=== PATIENT | male | born 1985 | race American Indian/Alaskan Native ===

== ENCOUNTER 2017-06-29 15:49 | Inpatient (IN) | payer MEDICAID ==
[2017-06-29] MEDS ORDERED: Sodium Chloride 0.9% 10 ML Syringe FLUSH PRN (15:56)
[2017-06-29] MEDS ORDERED: LORazepam 2 MG/ML SDV IVPUSH ONE (15:56)
[2017-06-29] MEDS: Sodium Chloride 0.9% 1,000 ML IV SCH ×2 (16:05→18:56)
--- NOTE | 2017-06-29 16:24 | EDM.PDOC ---
ED HPI GENERAL MEDICAL PROBLEM - General Chief Complaint: Drug or Alcohol Abuse Stated Complaint: drug overdose Time Seen by Provider: 06/29/17 15:55 Source of Information: Reports: Patient History Limitations: Reports: Altered Mental Status, Combative/Threatening - History of Present Illness INITIAL COMMENTS - FREE TEXT/NARRATIVE: Patient's trying the emergency department this afternoon by family members. Patient states that he had taken ibuprofen 200 mg tablets 50 years them early this morning or late last night to try and get high. This morning he also was smoking marijuana and accommodation at 2 made the patient feel very lightheaded dizzy agitated and very warm. Patient states he is nauseated and has vomited once. Patient is very agitated and unable to answer many questions. Onset: Sudden Associated Symptoms: Reports: Fever/Chills, Nausea/Vomiting. Denies: cough w sputum, Headaches, Loss of Appetite, Malaise, Seizure, Shortness of Breath, Syncope - Related Data Allergies Allergy/AdvReac Type Severity Reaction Status Date / Time No Known Allergies Allergy Verified 06/29/17 16:28 Home Meds: Home Meds buPROPion [Wellbutrin] 200 mg BID 06/29/17 [History] Past Medical History Psychiatric History: Reports: ADD, ADHD, Anxiety, Depression - Past Surgical History GI Surgical History: Reports: Cholecystectomy ED ROS GENERAL - Review of Systems Review Of Systems: See Below Constitutional: Reports: No Symptoms HEENT: Reports: No Symptoms Respiratory: Reports: No Symptoms Cardiovascular: Reports: No Symptoms Endocrine: Reports: No Symptoms GI/Abdominal: Reports: No Symptoms Skin: Reports: Diaphoresis Neurological: Reports: Confusion, Dizziness Psychiatric: Reports: Agitation ED EXAM, GENERAL - Physical Exam Exam: See Below Exam Limited By: Combative/Threatening General Appearance: Alert Respiratory/Chest: No Respiratory Distress, No Accessory Muscle Use Cardiovascular: Normal Peripheral Pulses, Regular Rate, Rhythm GI/Abdominal: Normal Bowel Sounds, Soft, Non-Tender, No Distention, No Abnormal Bruit Extremities: Normal Inspection, Normal Range of Motion, Normal Capillary Refill Neurological: Disoriented Psychiatric: Anxious, Tearful Skin Exam: Warm, Dry, Intact, Normal Color Course - Vital Signs Last Recorded V/S: Last Vital Signs Temp 37.2 C 06/29/17 15:49 Pulse 106 H 06/29/17 15:49 Resp 20 06/29/17 15:49 BP 139/107 H 06/29/17 15:49 Pulse Ox 97 06/29/17 15:49 - Orders/Labs/Meds Orders: Active Orders 24 hr Category Date Time Status Cardiac Monitoring [RC] . DIRECTED Care 06/29/17 16:32 Ordered Chest 1V Frontal [CR] Stat Exams 06/29/17 16:34 Ordered ACETAMINOPHEN [CHEM] Stat Lab 06/29/17 15:56 Ordered COMPREHENSIVE METABOLIC PN,CMP [CHEM] Stat Lab 06/29/17 15:56 Ordered DRUG SCREEN, URINE [URCHEM] Stat Lab 06/29/17 16:30 Uncollected SALICYLATE [REF] Stat Lab 06/29/17 15:56 Ordered Sodium Chloride 0.9% [Normal Saline] 1,000 ml Med 06/29/17 16:00 Active IV ASDIRECTED Sodium Chloride 0.9% [Saline Flush] Med 06/29/17 15:56 Active 10 ml FLUSH ASDIRECTED PRN Peripheral IV Insertion Adult [OM.PC] Routine Oth 06/29/17 15:56 Ordered Medication Orders Sodium Chloride (Normal Saline) 1,000 mls @ 100 mls/hr IV ASDIRECTED MARVA Last Admin: 06/29/17 16:05 Dose: 100 mls/hr Sodium Chloride (Saline Flush) 10 ml FLUSH ASDIRECTED PRN PRN Reason: Keep Vein Open Labs: Laboratory Tests 06/29/17 Range/Units 16:38 WBC 6.8 (4.0-10.0) x10^3/uL RBC 4.70 (4.5-6.0) x10^6/uL Hgb 13.6 L (14.0-18.0) g/dL Hct 41.3 (40.0-52.0) % MCV 87.9 (78.0-93.0) fL MCH 28.9 (26.0-32.0) pg MCHC 32.9 (32.0-36.0) g/dL RDW Coeff of Rolando 14.3 (10.0-15.0) % Plt Count 213 (130-400) x10^3/uL Neut % (Auto) 67.4 (50.0-80.0) % Lymph % (Auto) 18.7 L (25.0-50.0) % Upson % (Auto) 9.6 (2.0-11.0) % Eos % (Auto) 4.0 (0.0-4.0) % Baso % (Auto) 0.3 (0.2-1.2) % Meds: Medications Generic Name Dose Route Start Last Admin Trade Name Freq PRN Reason Stop Dose Admin Sodium Chloride 1,000 mls @ 100 mls/hr 06/29/17 16:00 06/29/17 16:05 Normal Saline IV 100 mls/hr ASDIRECTED MARVA Administration Sodium Chloride 10 ml 06/29/17 15:56 Saline Flush FLUSH ASDIRECTED PRN Keep Vein Open Discontinued Medications Generic Name Dose Route Start Last Admin Trade Name Freq PRN Reason Stop Dose Admin Lorazepam 2 mg 06/29/17 15:56 06/29/17 16:06 Ativan IVPUSH 06/29/17 15:57 2 mg ONETIME ONE Administration Departure - Departure Time of Disposition: 17:30 Disposition: Admitted As Inpatient 64 Condition: Good Clinical Impression: Drug abuse - Discharge Information Forms: ED Department Discharge - My Orders Last 24 Hours: My Active Orders 06/29/17 15:56 ACETAMINOPHEN [CHEM] Stat COMPREHENSIVE METABOLIC PN,CMP [CHEM] Stat SALICYLATE [REF] Stat Sodium Chloride 0.9% [Saline Flush] 10 ml FLUSH ASDIRECTED PRN Peripheral IV Insertion Adult [OM.PC] Routine 06/29/17 16:00 Sodium Chloride 0.9% [Normal Saline] 1,000 ml IV ASDIRECTED 06/29/17 16:30 DRUG SCREEN, URINE [URCHEM] Stat 06/29/17 16:32 Cardiac Monitoring [RC] . DIRECTED 06/29/17 16:34 Chest 1V Frontal [CR] Stat - Assessment/Plan Last 24 Hours: My Active Orders 06/29/17 15:56 ACETAMINOPHEN [CHEM] Stat COMPREHENSIVE METABOLIC PN,CMP [CHEM] Stat SALICYLATE [REF] Stat Sodium Chloride 0.9% [Saline Flush] 10 ml FLUSH ASDIRECTED PRN Peripheral IV Insertion Adult [OM.PC] Routine 06/29/17 16:00 Sodium Chloride 0.9% [Normal Saline] 1,000 ml IV ASDIRECTED 06/29/17 16:30 DRUG SCREEN, URINE [URCHEM] Stat 06/29/17 16:32 Cardiac Monitoring [RC] . DIRECTED 06/29/17 16:34 Chest 1V Frontal [CR] Stat
[2017-06-29 17:08] LABS: CHLORIDE,CL 104 mmol/L (98-107); SODIUM,NA 139 mmol/L (136-145)
[2017-06-29 17:09] LABS: ACETAMINOPHEN 0 ug/ml (10-30)
[2017-06-29] MEDS ORDERED: Diphtheria,Pertussis(Acell),Tetanus Vaccine 0.5 ML Syringe IM ONE (17:59)
--- NOTE | 2017-06-30 10:06 | HP ---
This is a combination of admission history and physical, discharge summary, and transfer summary. REASON FOR ADMISSION: Drug overdose. HISTORY OF PRESENT ILLNESS: This is a 31-year-old male, brought in by family members because of not feeling well. He tells me he started taking increasing doses of Wellbutrin about 36 hours ago. Over that time, he took 200 mg tablets, approximately 50 tablets. Not sure exactly when he stopped taking those sometime today. Then, he started taking some marijuana today. With the combination of his Wellbutrin and marijuana, he started having sweats, shakes, dizziness, nausea, and spinning sensation. He felt scared. He had increased heart rate, but no headache, and he was brought into the emergency room for assessment. In the emergency room, he was found to be agitated. He was given one dose of 2 mg of IV Ativan with improvement. PAST MEDICAL HISTORY: Significant for depression. He was started on Wellbutrin SR 200 mg b.i.d. about 2 to 3 months ago by [facility] in [place] to manage this. He states he was having a crisis problem over the past couple of days and was taking increasing doses of Wellbutrin to not feel the pain and to control his anger and to "get high." He was subsequently with marijuana. He denies this being a suicide attempt. He has several year history of depression, but in the past 2 months this is the first time it has been treated. 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 He is on gabapentin 600 mg t.i.d. for this with improvement. Again, he supplements this with marijuana. ALLERGIES: Dogs and cats. Tylenol with codeine upsets his stomach. HABITS: Tobacco use is positive. Alcohol use is occasional. He denies other drug use other than marijuana. REVIEW OF SYSTEMS: Otherwise unremarkable. OBJECTIVE: General: He is alert. Current Vital Signs: He is afebrile, pulse of 86, blood pressure 100/47, respirations 16, and oxygen saturations 97% on room air. The patient is morbidly obese, probably greater than 400 pounds. HEENT: Pupils unremarkable. TMs negative. Throat clear. Neck: No adenopathy. Heart: Regular without murmur. Lungs: Clear to auscultation. Abdomen: Nontender. No masses palpable. No hepatosplenomegaly noted. Extremities: Moves all 4 extremities. No edema. NEUROLOGIC: Grossly intact. Currently not agitated. LABORATORY DATA: White count 6.8 and hemoglobin 13.6. His electrolytes are normal. Creatinine 1.1. Glucose of 93. LFTs are normal. Urine tox screen was negative except for marijuana. Acetaminophen level is pending. Initial chest x- ray was unremarkable. Initial EKG showed normal sinus rhythm, rate in the 80s, QRS of 113, this was done about 1400 hours. Repeat EKG about 8 p.m. showed a widening of his QRS to 124 with a heart rate of 84. Otherwise within normal sinus rhythm. Contact was made with Poison Control initially in the ER and then again later on the floor. They spoke with Domingo. Recommendation was for that if his QRS goes over 120, he needs some bicarb along with a bicarb infusion and to monitor his QRS closely and check for acidosis. Because of this recommendation, it was felt that he would not require ICU monitoring. I then contacted [facility], talked to the hospitalist on duty, Dr. Gonzales, and he agreed that he would need to be monitored in the ICU for potential deterioration of his condition. He accepted the patient in transfer. ASSESSMENT: Drug overdose. PLAN: The patient will be transferred by ALS ambulance to [facility]. Dr. Gonzales is accepting physician, may be placed in the ICU. Emtala forms paperwork completed. Duration of discharge day and evaluation was greater than 1 hour. FM: 06/29/2017 21:05:58 MODL: 06/30/2017 02:05:25 /[id number]
== END 2017-06-29 21:28 | disposition short-term general hospital (02) | DRG 918 ==
LOC: VM.ED 15:49 → VM.MS 17:04
PROVIDERS: ADMIT Family Medicine; ATTEND Family Medicine
DX: T43.291A Poisoning by other antidepressants, accidental (unintentional), initial encounter (principal); T40.7X1A Poisoning by cannabis (derivatives), accidental (unintentional), initial encounter; F32.9 Major depressive disorder, single episode, unspecified; G89.4 Chronic pain syndrome; R45.1 Restlessness and agitation; Z88.8 Allergy status to other drugs, medicaments and biological substances; Z91.048 Other nonmedicinal substance allergy status; F17.200 Nicotine dependence, unspecified, uncomplicated; Z79.899 Other long term (current) drug therapy; F41.9 Anxiety disorder, unspecified
CPT/HCPCS: 36415; 71045; 80053; 80305; 80349; 85025; 93005; 96361; 96374; 99236; 99284-GF; 99285; G0480; J2060; J7030

== ENCOUNTER 2017-11-16 18:42 | Emergency (ER) | payer MEDICAID ==
--- NOTE | 2017-11-16 18:58 | EDM.PDOC ---
ED HPI GENERAL MEDICAL PROBLEM - General Chief Complaint: General Stated Complaint: tooth pain Time Seen by Provider: 11/16/17 18:42 Source of Information: Reports: Patient, RN, RN Notes Reviewed History Limitations: Reports: No Limitations - History of Present Illness INITIAL COMMENTS - FREE TEXT/NARRATIVE: Patient presents to the ED at [facility] complaining of left upper tooth pain that started about one week ago. Patient states he has spoke with a dentist , but he is unable to pay for a dental visit at this time. Patient is requesting pain medication. Patient states the pain radiates to the upper left jaw and head. No fever or chills. Patient is able to eat ok. No issues with drinking. Patient does not have a regular dentist nor does he go to regular dental checkups. Onset: Gradual Onset Date: 11/09/17 Duration: Constant Location: Reports: Face Quality: Reports: Throbbing Severity: Severe Improves with: Reports: None Worsens with: Reports: Eating, Movement Associated Symptoms: Reports: No Other Symptoms Treatments LEAD ENGINEER: Reports: Acetaminophen, NSAIDS - Related Data Allergies Allergy/AdvReac Type Severity Reaction Status Date / Time dog dander Allergy Other Verified 06/29/17 20:41 acetaminophen AdvReac Nausea and Verified 06/30/17 09:23 [From Tylenol-Codeine #3] Vomiting codeine AdvReac Nausea and Verified 06/30/17 09:23 [From Tylenol-Codeine #3] Vomiting Home Meds: Home Meds Acetaminophen 2 tab PO Q6HR PRN #10 tablet 11/16/17 [Rx] Clindamycin HCl 1 cap PO Q8HR 9 Days #27 capsule 11/16/17 [Rx] Ibuprofen 4 tab PO Q6HR PRN #12 capsule 11/16/17 [Rx] Past Medical History - Past Health History Medical/Surgical History: Denies Medical/Surgical History Psychiatric History: Reports: ADD, ADHD, Anxiety, Depression - Infectious Disease History Infectious Disease History: Reports: Chicken Pox - Past Surgical History GI Surgical History: Reports: Cholecystectomy Social & Family History - Family History Family Medical History: Noncontributory - Caffeine Use Caffeine Use: Reports: Energy Drinks, Soda ED ROS GENERAL - Review of Systems Review Of Systems: See Below Constitutional: Denies: Fever, Chills, Weakness HEENT: Reports: Dental Pain Respiratory: Denies: Shortness of Breath, Cough Cardiovascular: Denies: Chest Pain, Palpitations Skin: Reports: No Symptoms Neurological: Reports: No Symptoms. Denies: Dizziness, Headache ED EXAM, GENERAL - Physical Exam Exam: See Below Exam Limited By: No Limitations General Appearance: Alert, No Apparent Distress Throat/Mouth: Other (considerable gingivitis and periodontal disease throughout ; molars #12, #13) Neck: Supple, Other (no adenopathy) Respiratory/Chest: No Respiratory Distress, Lungs Clear, Normal Breath Sounds Cardiovascular: Normal Peripheral Pulses, Regular Rate, Rhythm Neurological: Alert, Oriented Skin Exam: Warm, Dry, Intact, Normal Color Departure - Departure Time of Disposition: 18:58 Disposition: Home, Self-Care 01 Condition: Good Clinical Impression: Dental abscess, Dental caries, Gingivitis - Discharge Information Prescriptions: Acetaminophen 2 tab PO Q6HR PRN #10 tablet PRN Reason: Pain Ibuprofen 4 tab PO Q6HR PRN #12 capsule PRN Reason: Pain Clindamycin HCl 1 cap PO Q8HR 9 Days #27 capsule Instructions: Dental Abscess, Gingivitis Additional Instructions: 1. Stay well hydrated and rest 2. Do warm salt water gargles several times a day 3. Continue with alternating Tylenol/Advil for pain 4. Rinse with an antiseptic mouth wash 5. STOP smoking, this is making your symptoms worse 6. Take antibiotics for the full coarse, even if you are feeling better 7. See your dentist as soon as you are able, your teeth need to get fixed 8. Call us with any questions or concerns - Problem List Review Problem List Initiated/Reviewed/Updated: Yes
[2017-11-16] MEDS ORDERED: Take Home: Clindamycin HCl 150 MG Cap, 6 Cap Pack PO ONE (19:04)
== END 2017-11-16 19:15 | disposition home or self-care (01) ==
LOC: VM.ED 18:42
DX: K04.7 Periapical abscess without sinus (principal); K02.9 Dental caries, unspecified; K05.10 Chronic gingivitis, plaque induced; Z88.5 Allergy status to narcotic agent; Z79.899 Other long term (current) drug therapy; Z88.8 Allergy status to other drugs, medicaments and biological substances; Z91.048 Other nonmedicinal substance allergy status
CPT/HCPCS: 99282

== ENCOUNTER 2018-02-06 14:56 | Emergency (ER) | payer MEDICAID ==
[2018-02-06] MEDS ORDERED: Lidocaine 2% with EPINEPHrine 1:100,000 20 ML MDV INJECT ONE (15:21)
[2018-02-06] MEDS ORDERED: Cephalexin 500 MG Cap PO ONE (15:40)
[2018-02-06] MEDS ORDERED: Cephalexin 250 MG Cap PO ONE (15:41)
--- NOTE | 2018-02-06 15:49 | EDM.PDOC ---
ED HPI GENERAL MEDICAL PROBLEM - General Chief Complaint: Skin Complaint Stated Complaint: CYST Time Seen by Provider: 02/06/18 15:00 Source of Information: Reports: Patient History Limitations: Reports: No Limitations - History of Present Illness INITIAL COMMENTS - FREE TEXT/NARRATIVE: Patient here with complaints of left upper leg sore that started two days ago. He states that the pain is worsening gradually. He does state he has a history of this. He denies fever, chills. No other complaints today. Onset: Gradual Duration: Getting Worse Location: Reports: Lower Extremity, Left Quality: Reports: Ache Severity: Moderate Improves with: Reports: None Worsens with: Reports: Other (rubbing of thighs ), Movement Associated Symptoms: Reports: No Other Symptoms - Related Data Allergies Allergy/AdvReac Type Severity Reaction Status Date / Time dog dander Allergy Other Verified 02/06/18 15:13 acetaminophen AdvReac Nausea and Verified 02/06/18 15:13 [From Tylenol-Codeine #3] Vomiting codeine AdvReac Nausea and Verified 02/06/18 15:13 [From Tylenol-Codeine #3] Vomiting Home Meds: Home Meds . [No Known Home Meds] 02/06/18 [History] Past Medical History - Past Health History Medical/Surgical History: Denies Medical/Surgical History Respiratory History: Reports: Sleep Apnea Psychiatric History: Reports: ADD, ADHD, Anxiety, Depression Dermatologic History: Reports: Other (See Below) Other Dermatologic History: cyst - Infectious Disease History Infectious Disease History: Reports: Chicken Pox - Past Surgical History Other HEENT Surgeries/Procedures: tooth removal GI Surgical History: Reports: Cholecystectomy Social & Family History - Family History Family Medical History: Noncontributory - Tobacco Use Smoking Status *Q: Current Every Day Smoker Years of Tobacco use: 18 Packs/Tins Daily: 0.2 - Caffeine Use Caffeine Use: Reports: Energy Drinks, Soda ED ROS GENERAL - Review of Systems Review Of Systems: See Below Constitutional: Reports: No Symptoms HEENT: Reports: No Symptoms Respiratory: Reports: No Symptoms Cardiovascular: Reports: No Symptoms Endocrine: Reports: No Symptoms GI/Abdominal: Reports: No Symptoms : Reports: No Symptoms Musculoskeletal: Reports: No Symptoms Skin: Reports: Erythema, Lumps Neurological: Reports: No Symptoms Psychiatric: Reports: No Symptoms Hematologic/Lymphatic: Reports: No Symptoms Immunologic: Reports: No Symptoms ED EXAM, SKIN/RASH Exam: See Below Exam Limited By: No Limitations General Appearance: Alert, WD/WN, No Apparent Distress Peripheral Pulses: 2+: Posterior Tibial (L), Posterior Tibial (R), Dorsalis Pedis (L), Dorsalis Pedis (R) Extremities: Normal Inspection, Normal Range of Motion, Non-Tender, No Pedal Edema, Normal Capillary Refill Neurological: Alert, Oriented, CN II-XII Intact, Normal Cognition, Normal Gait, Normal Reflexes, No Motor/Sensory Deficits Psychiatric: Normal Affect, Normal Mood Skin: Warm, Dry, Intact, Erythema, Increased Warmth Location, Skin: Lower Extremity, Left Characteristics: Other (abscess left upper thigh) Lymphatic: No Adenopathy ED SKIN PROCEDURES - I&D Site: left upper leg Skin Prep: Chlorhexidine (Hibiciens) Local Anesthesia: Lidocaine: 2% with EPI Local Anesthetic Volume: 1cc Area Incised With: 11 Blade Drainage: Bloody, Small Amount Probed to Break Up Loculations: Yes Sterile Dressinx4(s) Complications: No Course - Vital Signs Last Recorded V/S: Last Vital Signs Temp 35.2 C L 02/06/18 15:00 Pulse 72 02/06/18 15:00 Resp 18 02/06/18 15:00 BP 125/74 02/06/18 15:00 Pulse Ox 98 02/06/18 15:00 - Orders/Labs/Meds Orders: Active Orders 24 hr Category Date Time Status C-REACTIVE PROTEIN [CHEM] Stat Lab 02/06/18 15:21 Ordered CBC WITH AUTO DIFF [HEME] Stat Lab 02/06/18 15:21 Ordered CULTURE WOUND [RM] Stat Lab 02/06/18 15:35 Received Meds: Medications Discontinued Medications Generic Name Dose Route Start Last Admin Trade Name Freq PRN Reason Stop Dose Admin Cephalexin 500 mg 02/06/18 15:40 Keflex PO 02/06/18 15:41 ONETIME ONE Cephalexin 250 mg 02/06/18 15:41 Keflex PO 02/06/18 15:42 ONETIME ONE Lidocaine/Epinephrine 20 ml 02/06/18 15:21 Xylocaine 2% With Epinephrine 1:100,000 INJECT 02/06/18 15:22 ONETIME ONE Departure - Departure Time of Disposition: 15:44 Disposition: Home, Self-Care 01 Condition: Good Clinical Impression: Abscess - Discharge Information *PRESCRIPTION DRUG MONITORING PROGRAM REVIEWED*: No *COPY OF PRESCRIPTION DRUG MONITORING REPORT IN PATIENT NATALY: No Instructions: Skin Abscess, Incision and Drainage, Care After, Cephalexin tablets or capsules Referrals: PCP,None [Primary Care Provider] - Additional Instructions: Please follow up as needed with a primary care provider. Take the entire course of the Keflex unless you develop a rash, swelling, or difficulty breathing. You should also take either a probiotic or yogurt for the next 1-2 months to keep the healthy bacteria in your gut and prevent a bacterial infection in the stomach. Stay well hydrated. Keep your incision clean and dry, do not soak or submerge in water until closed. You can use warm compresses. Pain control can be achieved using tylenol and ibuprofen. Please call with any questions or concerns. - Problem List & Annotations (1) Abscess SNOMED Code(s): 148423554 Code(s): L02.91 - CUTANEOUS ABSCESS, UNSPECIFIED Status: Acute Priority: Low Current Visit: Yes - Problem List Review Problem List Initiated/Reviewed/Updated: Yes - My Orders Last 24 Hours: My Active Orders 02/06/18 15:21 C-REACTIVE PROTEIN [CHEM] Stat CBC WITH AUTO DIFF [HEME] Stat 02/06/18 15:35 CULTURE WOUND [RM] Stat - Assessment/Plan Last 24 Hours: My Active Orders 02/06/18 15:21 C-REACTIVE PROTEIN [CHEM] Stat CBC WITH AUTO DIFF [HEME] Stat 02/06/18 15:35 CULTURE WOUND [RM] Stat Assessment:: left leg abscess Plan: Please follow up as needed with a primary care provider. Take the entire course of the Keflex unless you develop a rash, swelling, or difficulty breathing. You should also take either a probiotic or yogurt for the next 1-2 months to keep the healthy bacteria in your gut and prevent a bacterial infection in the stomach. Stay well hydrated. Keep your incision clean and dry, do not soak or submerge in water until closed. You can use warm compresses. Pain control can be achieved using tylenol and ibuprofen. Please call with any questions or concerns.
== END 2018-02-06 16:03 | disposition home or self-care (01) ==
LOC: VM.ED 14:56
DX: L02.416 Cutaneous abscess of left lower limb (principal); F17.210 Nicotine dependence, cigarettes, uncomplicated; Z88.5 Allergy status to narcotic agent; Z88.8 Allergy status to other drugs, medicaments and biological substances; Z91.048 Other nonmedicinal substance allergy status
CPT/HCPCS: 10060; 36415; 85025; 86140; 87070; 99283; A9270

== ENCOUNTER 2018-12-30 08:16 | Emergency (ER) | payer MEDICAID ==
--- NOTE | 2018-12-30 09:02 | EDM.PDOC ---
ED HPI GENERAL MEDICAL PROBLEM - General Chief Complaint: General Stated Complaint: ER Time Seen by Provider: 12/30/18 08:24 Source of Information: Reports: Patient, EMS History Limitations: Reports: No Limitations - History of Present Illness INITIAL COMMENTS - FREE TEXT/NARRATIVE: Pt presents with c/o 2 days hx of stiff joints and pain, today states he woke up with pain in his neck, denies any recent trauma or injury. Pt with hx of chronic pain. Onset Date: 12/28/18 Location: Reports: Neck, Other (hands and feet ) Quality: Reports: Ache Neck Pain Score (Numeric/FACES): 10 - Related Data Allergies Allergy/AdvReac Type Severity Reaction Status Date / Time dog dander Allergy Other Verified 12/30/18 08:47 acetaminophen AdvReac Nausea and Verified 12/30/18 08:47 [From Tylenol-Codeine #3] Vomiting codeine AdvReac Nausea and Verified 12/30/18 08:47 [From Tylenol-Codeine #3] Vomiting Home Meds: Home Meds DULoxetine HCl [Cymbalta] 60 mg DAILY 12/30/18 [History] Gabapentin [Neurontin] 800 mg TID 12/30/18 [History] Ibuprofen 800 mg TID PRN 12/30/18 [History] Methylphenidate HCl [Methylphenidate ER] 20 mg TID 12/30/18 [History] Past Medical History - Past Health History Medical/Surgical History: Denies Medical/Surgical History Respiratory History: Reports: Sleep Apnea Psychiatric History: Reports: ADD, ADHD, Anxiety, Depression Dermatologic History: Reports: Other (See Below) Other Dermatologic History: cyst - Infectious Disease History Infectious Disease History: Reports: Chicken Pox - Past Surgical History Other HEENT Surgeries/Procedures: tooth removal GI Surgical History: Reports: Cholecystectomy Social & Family History - Family History Family Medical History: Noncontributory - Caffeine Use Caffeine Use: Reports: Energy Drinks, Soda ED ROS GENERAL - Review of Systems Review Of Systems: See Below Constitutional: Reports: No Symptoms HEENT: Reports: No Symptoms Respiratory: Reports: No Symptoms Cardiovascular: Reports: No Symptoms Musculoskeletal: Reports: Neck Pain, Hand Pain, Foot Pain, Muscle Pain, Muscle Stiffness Skin: Reports: No Symptoms Neurological: Reports: No Symptoms ED EXAM, GENERAL - Physical Exam Exam: See Below Free Text/Narrative:: Pt presents with 2 day hx of joint pain and inflammation. Today pt states noted pain and decreased rom in neck this am. Started when he woke up. Pt wiith hx of chronic pain. Pt with elivated CRP heat to hand improved pain. Pt given toradol 30 mg IV and placed on medrol dose pk. PT to follow up with pcp for continued evaluation and treatment as needed. Exam Limited By: No Limitations General Appearance: Alert, WD/WN, Anxious Ears: Normal External Exam Nose: Normal Inspection Head: Atraumatic, Normocephalic Neck: Other (c/o pain and decreased rom ) Respiratory/Chest: No Respiratory Distress, Lungs Clear, Normal Breath Sounds, No Accessory Muscle Use, Chest Non-Tender Cardiovascular: Normal Peripheral Pulses, Regular Rate, Rhythm, No Edema, No Gallop, No JVD, No Murmur, No Rub Extremities: Other (stiffness and pain to hands and feet [id number] rom ) Neurological: Alert, Oriented Psychiatric: Normal Affect Skin Exam: Warm, Dry Course - Vital Signs Last Recorded V/S: Last Vital Signs Temp 36.0 C 12/30/18 08:16 Pulse 69 12/30/18 08:16 Resp 20 12/30/18 08:16 BP 142/73 H 12/30/18 08:16 Pulse Ox 96 12/30/18 08:16 - Orders/Labs/Meds Labs: Laboratory Tests 12/30/18 12/30/18 12/30/18 Range/Units 09:08 09:08 09:08 WBC 4.6 (4.0-10.0) x10^3/uL RBC 4.56 (4.5-6.0) x10^6/uL Hgb 13.4 L D (14.0-18.0) g/dL Hct 39.5 L (40.0-52.0) % MCV 86.6 (78.0-93.0) fL MCH 29.4 (26.0-32.0) pg MCHC 33.9 (32.0-36.0) g/dL RDW Coeff of Rolando 14.5 (10.0-15.0) % Plt Count 182 (130-400) x10^3/uL Neut % (Auto) 59.6 (50.0-80.0) % Lymph % (Auto) 25.6 (25.0-50.0) % [place] % (Auto) 9.8 (2.0-11.0) % Eos % (Auto) 4.6 H (0.0-4.0) % Baso % (Auto) 0.4 (0.2-1.2) % ESR 15 (0-16) mm/hr Sodium 147 H (136-145) mmol/L Potassium 3.5 (3.5-5.1) mmol/L Chloride 111 H (98-107) mmol/L Carbon Dioxide 25 (21-32) mmol/L Anion Gap 14.5 (10-20) mmol/L BUN 9 (7-18) mg/dL Creatinine 0.8 (0.70-1.30) mg/dL Est Cr Clr Drug Dosing 141.46 mL/min Estimated GFR (MDRD) > 60 Glucose 99 (74-106) mg/dL Calcium 8.1 L (8.5-10.1) mg/dL C-Reactive Protein 2.9 H (<=0.9) mg/dL Meds: Medications Discontinued Medications Generic Name Dose Route Start Last Admin Trade Name Freq PRN Reason Stop Dose Admin Ketorolac Tromethamine 30 mg 12/30/18 09:30 Toradol IVPUSH 12/30/18 09:31 ONETIME ONE Departure - Departure Time of Disposition: 10:20 Disposition: Home, Self-Care 01 Condition: Good Clinical Impression: Chronic pain - Discharge Information *PRESCRIPTION DRUG MONITORING PROGRAM REVIEWED*: Not Applicable *COPY OF PRESCRIPTION DRUG MONITORING REPORT IN PATIENT NATALY: Not Applicable Instructions: Arthritis, [id number] Referrals: Scot Huang NP [Primary Care Provider] - Forms: ED Department Discharge
[2018-12-30 09:29] LABS: CHLORIDE,CL 111 mmol/L (98-107); SODIUM,NA 147 mmol/L (136-145)
[2018-12-30 09:30] LABS: ANION GAP 14.5 mmol/L (10-20)
[2018-12-30] MEDS ORDERED: Ketorolac 30 MG/ML SDV IVPUSH ONE (09:30)
== END 2018-12-30 10:40 | disposition home or self-care (01) ==
LOC: VM.ED 08:16
DX: G89.29 Other chronic pain (principal); M54.2 Cervicalgia; M79.642 Pain in left hand; M79.641 Pain in right hand; F90.9 Attention-deficit hyperactivity disorder, unspecified type; Z91.048 Other nonmedicinal substance allergy status; Z88.5 Allergy status to narcotic agent; Z79.899 Other long term (current) drug therapy
CPT/HCPCS: 36415; 80048; 85025; 85652; 86140; 96374; 99283; J1885

== ENCOUNTER 2019-06-30 21:56 | Emergency (ER) | payer MEDICAID ==
[2019-06-30] MEDS ORDERED: Sodium Chloride 0.9% 10 ML Syringe FLUSH PRN (22:17)
[2019-06-30 23:18] LABS: BARBITURATE SCREEN,URINE NEGATIVE (NEGATIVE); BENZODIAZEPINES SCREEN,URINE POSITIVE (NEGATIVE); EDDP,URINE SCREEN NEGATIVE (NEGATIVE); METHAMPHETAMINE SCREEN, URINE NEGATIVE (NEGATIVE); TCA SCREEN,URINE NEGATIVE (NEGATIVE); THC SCREEN,URINE 50 NG/ML POSITIVE (NEGATIVE)
[2019-06-30 23:38] LABS: CHLORIDE,CL 108 mmol/L (98-107); SODIUM,NA 147 mmol/L (136-145)
[2019-06-30 23:40] LABS: ANION GAP 19.8 mmol/L (10-20)
[2019-06-30] MEDS ORDERED: OLANZapine 10 MG Vial IM ONE (23:46)
[2019-07-01] MEDS ORDERED: LORazepam 2 MG/ML SDV IM ONE (00:21)
[2019-07-01] MEDS ORDERED: Haloperidol Lactate 5 MG/ML SDV IM ONE (00:22)
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
[2019-07-01 04:06] VITALS: BP 131/89
[2019-07-01 04:56] VITALS: PULSE 91
== END 2019-07-01 06:46 ==
LOC: VM.ED 21:56
DX: T43.211A Poisoning by selective serotonin and norepinephrine reuptake inhibitors, accidental (unintentional), initial encounter (principal); R41.0 Disorientation, unspecified; F90.9 Attention-deficit hyperactivity disorder, unspecified type; F32.9 Major depressive disorder, single episode, unspecified; F41.9 Anxiety disorder, unspecified; Z79.899 Other long term (current) drug therapy; Z88.5 Allergy status to narcotic agent; Z88.6 Allergy status to analgesic agent; Z91.048 Other nonmedicinal substance allergy status
CPT/HCPCS: 36415; 80053; 80305-QW; 81001; 83735; 84100; 84443; 85025; 85610; 86140; 93005; 96372; 99283-25; G0480; J3490

== ENCOUNTER 2019-11-04 12:53 | Emergency (ER) | payer MEDICAID ==
[2019-11-04] MEDS ORDERED: Ketorolac 30 MG/ML SDV IM ONE (13:15)
--- NOTE | 2019-11-04 13:34 | EDM.PDOC ---
ED HPI GENERAL MEDICAL PROBLEM - General Chief Complaint: Back Pain or Injury Stated Complaint: FELL HURT BACK Time Seen by Provider: 11/04/19 13:00 Source of Information: Reports: Patient History Limitations: Reports: No Limitations - History of Present Illness INITIAL COMMENTS - FREE TEXT/NARRATIVE: Patient comes emergency department today with complaints of back pain following a fall from 2 days ago. The patient was supposed to check himself into detention 2 days ago as well as today and when he contacted them telling the detention about his fall they guided him to the emergency department due to his complaints of his back pain prior to his admission into the detention. The patient reports that 2 days ago he was stepping out of the shower when his right foot went out from under him and he fell backwards landing on the edge of the shower in the middle of his back. He did not get knocked out he did not hit his head. He has no head or neck pain. He does complain of constant pain in the mid to upper lower back. He does complain of numbness and tingling to his feet bilaterally although this is chronic for him with his peripheral neuropathy. He is currently not taking his gabapentin nor his metformin for his chronic disease processes. He has had no loss of bowel or bladder or change of bowel or bladder habits. He is able to ambulate into the facility. He denies any change in the functionality of his lower extremities. He has taken some Tylenol and ibuprofen yesterday but nothing today. He has not had any hematuria dysuria or urinary frequency.Has no chest pain shortness of breath difficulty breathing or cough. No abdominal pain nausea or vomiting. Lower Back Pain Score (Numeric/FACES): 7 - Related Data Allergies Allergy/AdvReac Type Severity Reaction Status Date / Time dog dander Allergy Other Verified 11/04/19 13:11 acetaminophen AdvReac Nausea and Verified 11/04/19 13:11 [From Tylenol-Codeine #3] Vomiting codeine AdvReac Nausea and Verified 11/04/19 13:11 [From Tylenol-Codeine #3] Vomiting Home Meds: Home Meds Cyclobenzaprine [Flexeril] 10 mg PO TID #12 tab 11/04/19 [Rx] Hydrocodone/Acetaminophen [[place] 5-325 Tablet] 1 each PO Q6H #12 tablet [Rx] Past Medical History - Past Health History Medical/Surgical History: Denies Medical/Surgical History HEENT History: Reports: Other (See Below) Other HEENT History: dental caries. gingivitis. 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 Endocrine/Metabolic History: Reports: Diabetes, Type II Dermatologic History: Reports: Other (See Below) Other Dermatologic History: cyst - Infectious Disease History Infectious Disease History: Reports: Chicken Pox - Past Surgical History Other HEENT Surgeries/Procedures: tooth removal GI Surgical History: Reports: Cholecystectomy Social & Family History - Family History Family Medical History: Noncontributory - Tobacco Use Smoking Status *Q: Current Every Day Smoker Years of Tobacco use: 2 Packs/Tins Daily: 0.2 - Caffeine Use Caffeine Use: Reports: Energy Drinks, Soda ED ROS GENERAL - Review of Systems Review Of Systems: Comprehensive ROS is negative, except as noted in HPI. ED EXAM,LOWER BACK PAIN/INJURY - Physical Exam Exam: See Below Exam Limited By: No Limitations General Appearance: Alert, WD/WN, Mild Distress, Obese Eye Exam: Bilateral Eye: EOMI, PERRL Ears: Normal External Exam Nose: Normal Inspection Throat/Mouth: Normal Inspection Head: Atraumatic, Normocephalic Neck: Normal Inspection, Supple, Non-Tender, Full Range of Motion Respiratory/Chest: No Respiratory Distress Cardiovascular: Normal Peripheral Pulses GI/Abdominal: Normal Bowel Sounds, Soft, Non-Tender (Male) Exam: Deferred Rectal (Males) Exam: Deferred Back Exam: Vertebral Tenderness (There is midline tenderness to T-12, L1 region. There is no bruising swelling ecchymosis or deformities step-offs abrasions contusions lacerations to the entire to the back.). No: CVA Tenderness (L), CVA Tenderness (R), Paraspinal Tenderness Extremities: Normal Inspection, Normal Range of Motion, Non-Tender, No Pedal Edema, Normal Capillary Refill Neurological: Alert, Normal Mood/Affect, Normal Dorsiflexion, Normal Plantar Flexion, Normal Gait, Normal Reflexes, No Motor/Sensory Deficits, Oriented x 3 DTR - Lower Extremities: 2+: Knee (R), Knee (L), Ankle (R), Ankle (L) Psychiatric: Normal Affect, Normal Mood Skin Exam: Warm, Dry, Intact, Normal Color, No Rash Course - Vital Signs Last Recorded V/S: Last Vital Signs Temp 36.3 C 11/04/19 12:58 Pulse 89 11/04/19 12:58 Resp 18 11/04/19 12:58 BP 109/53 L 11/04/19 12:58 Pulse Ox 97 11/04/19 12:58 - Orders/Labs/Meds Orders: Active Orders 24 hr Category Date Time Status Thoracic Spine 2V [CR] Stat Exams 11/04/19 13:15 Taken Meds: Medications Discontinued Medications Generic Name Dose Route Start Last Admin Trade Name Fabricio PRN Reason Stop Dose Admin Ketorolac Tromethamine 30 mg 11/04/19 13:15 11/04/19 13:25 Toradol IM 11/04/19 13:16 30 mg ONETIME ONE Administration Orphenadrine Citrate 60 mg 11/04/19 13:15 11/04/19 13:25 Norflex IM 11/04/19 13:16 60 mg NOW STA Administration - Radiology Interpretation Free Text/Narrative:: X-ray of the thoracic and lumbar spine per radiology. Spondylosis throughout the thoracic and lumbar spine. Mild anterior wedge compression deformity of L1. Correlate with level of pain is an acute fracture is possible. Age- indeterminate. - Re-Assessments/Exams Free Text/Narrative Re-Assessment/Exam: 11/04/19 14:03 The patient was given Ketorolac 30mg IM Norflex 60mg IM Departure - Departure Time of Disposition: 14:25 Disposition: Home, Self-Care 01 Clinical Impression: Lumbar compression fracture Qualifiers: Encounter type: initial encounter Lumbar vertebra fracture level: L1 Qualified Code(s): S32.010A - Wedge compression fracture of first lumbar vertebra, initial encounter for closed fracture - Discharge Information Instructions: Pain Medicine Instructions, [id number], Lumbar Spine Fracture Forms: ED Department Discharge Additional Instructions: Tylenol and Ibuprofen for pain. See Physical therapy when able to help with pain and mobility. Ice or heat to the areas which ever works best for you. Flexeril, 1 tablet three times a day as needed for muscle spasms and pain. Caution sedation. Rx sent to the Pharmacy. If pain not controlled with above. Garland 1 tablet every 6 hrs with food as needed for pain. Caution sedation. Return to the ED if new or worsening symptoms. Follow up with PCP in the next week for recheck. Sepsis Event Note - Evaluation Sepsis Screening Result: No Definite Risk - Focused Exam Vital Signs: Vital Signs Temp Pulse Resp BP Pulse Ox 11/04/19 12:58 36.3 C 89 18 109/53 L 97 Date Exam was Performed: 11/04/19 Time Exam was Performed: 14:26 - My Orders Last 24 Hours: My Active Orders 11/04/19 13:15 Thoracic Spine 2V [CR] Stat - Assessment/Plan Last 24 Hours: My Active Orders 11/04/19 13:15 Thoracic Spine 2V [CR] Stat Assessment:: L-1 Compression fracture mild anterior wedge Plan: Tylenol and Ibuprofen for pain. See Physical therapy when able to help with pain and mobility. Ice or heat to the areas which ever works best for you. Flexeril, 1 tablet three times a day as needed for muscle spasms and pain. Caution sedation. Rx sent to the Pharmacy. If pain not controlled with above. Garland 1 tablet every 6 hrs with food as needed for pain. Caution sedation. Return to the ED if new or worsening symptoms. Follow up with PCP in the next week for recheck.
--- NOTE | 2019-11-04 14:10 | CR ---
[id number] RAD/RAD Thoracic Spine 2V; [id number] RAD/RAD Lumbar Spine 2-3V Exam: RAD Thoracic Spine 2V, RAD Lumbar Spine 2-3V Indication:FALL ONTO HIS BACK. Comparison: No prior imaging for comparison. Discussion: Spondylosis throughout the thoracic and lumbar spine. Slight thoracic vertebral convexity. Severity ranging is from mild to moderate. There is slight loss of intervertebral disc height at T12-L1. Mild anterior wedge compression deformity of L1. Correlate with level of pain, as an acute fracture is possible. Impression: Age-indeterminate mild L1 anterior wedge compression fracture. Mo Mendez MD 11/04/19 [id number] Thank you for allowing us to participate in the care of your patient.
== END 2019-11-04 14:38 | disposition home or self-care (01) ==
LOC: VM.ED 12:53
DX: S32.010A Wedge compression fracture of first lumbar vertebra, initial encounter for closed fracture (principal); F17.210 Nicotine dependence, cigarettes, uncomplicated; Z91.09 Other allergy status, other than to drugs and biological substances; Z88.6 Allergy status to analgesic agent; Z88.5 Allergy status to narcotic agent; W18.2XXA Fall in (into) shower or empty bathtub, initial encounter
CPT/HCPCS: 72070; 72100; 96372; 99283; J1885; J2360

== ENCOUNTER 2019-11-09 16:20 | Emergency (ER) | payer MEDICAID ==
[2019-11-09] MEDS ORDERED: Take Home: Acetaminophen/HYDROcodone 325-5 MG, 5 Tab Pack PO ONE (17:25)
[2019-11-09] MEDS ORDERED: Take Home: Cyclobenzaprine 10 MG Tab, 4 Tab Pack PO ONE (17:25)
--- NOTE | 2019-11-09 23:14 | EDM.PDOC ---
ED HPI GENERAL MEDICAL PROBLEM - General Chief Complaint: Back Pain or Injury Stated Complaint: BACK HURTS Time Seen by Provider: 11/09/19 16:25 Source of Information: Reports: Patient History Limitations: Reports: No Limitations - History of Present Illness INITIAL COMMENTS - FREE TEXT/NARRATIVE: Pt. presents to ER with complaints of low back pain. He states that he slipped in the shower and sustained a mild anterior wedge fx. of L1. He was seen in ER and told to follow-up with his PCP. He was given a short course of [place] (12 tabs) in ER but his PCP did not prescribe him any more due to his use of marijuana and history of meth use. Pt. presents to ER today complaining of continued severe pain. He states that he is having issues standing and walking. Pt. is morbidly obese weighing greater than 450 #. He complains of numbness in his feet. He has a history of poorly controlled DM and has a history of peripheral neuropathy. Pt. denies any new trauma. Denies any incontinence or saddle anesthesia. Onset Date: 11/04/19 Location: Reports: Back Lower Back Pain Score (Numeric/FACES): 10 - Related Data Allergies Allergy/AdvReac Type Severity Reaction Status Date / Time dog dander Allergy Other Verified 11/09/19 16:32 acetaminophen AdvReac Nausea and Verified 11/09/19 16:32 [From Tylenol-Codeine #3] Vomiting codeine AdvReac Nausea and Verified 11/09/19 16:32 [From Tylenol-Codeine #3] Vomiting Home Meds: Home Meds Cyclobenzaprine [Flexeril] 10 mg PO TID #12 tab 11/04/19 [Rx] Hydrocodone/Acetaminophen [[place] 5-325 Tablet] 1 each PO Q6H #12 tablet [Rx] Past Medical History - Past Health History Medical/Surgical History: Denies Medical/Surgical History HEENT History: Reports: Other (See Below) Other HEENT History: dental caries. gingivitis. 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 Endocrine/Metabolic History: Reports: Diabetes, Type II Dermatologic History: Reports: Other (See Below) Other Dermatologic History: cyst - Infectious Disease History Infectious Disease History: Reports: Chicken Pox - Past Surgical History Other HEENT Surgeries/Procedures: tooth removal GI Surgical History: Reports: Cholecystectomy Social & Family History - Family History Family Medical History: Noncontributory - Tobacco Use Smoking Status *Q: Current Every Day Smoker Years of Tobacco use: 10 Packs/Tins Daily: 0.1 - Caffeine Use Caffeine Use: Reports: Energy Drinks, Soda - Recreational Drug Use Recreational Drug Use: No ED ROS GENERAL - Review of Systems Review Of Systems: See Below Constitutional: Reports: No Symptoms HEENT: Reports: No Symptoms Respiratory: Reports: No Symptoms Cardiovascular: Reports: No Symptoms Endocrine: Reports: No Symptoms GI/Abdominal: Reports: No Symptoms : Reports: No Symptoms Musculoskeletal: Reports: Back Pain Skin: Reports: No Symptoms Neurological: Reports: Paresthesia (in feet, this is chronic.) ED EXAM, GENERAL - Physical Exam Exam: See Below Exam Limited By: No Limitations General Appearance: Alert, WD/WN, No Apparent Distress Back Exam: Decreased Range of Motion, Muscle Spasm, Vertebral Tenderness ( midline mid thoracic to upper lumbar tenderness on palpation. Increased pain with flexion, extension, and lateral movement. ) Neurological: Alert, Oriented, Other (patellar reflex 1+ bilaterally.) Course - Vital Signs Last Recorded V/S: Last Vital Signs Temp 36.5 C 11/09/19 16:20 Pulse 86 11/09/19 16:20 Resp 24 H 11/09/19 16:20 BP 118/74 11/09/19 16:20 Pulse Ox 97 11/09/19 16:20 - Orders/Labs/Meds Meds: Medications Discontinued Medications Generic Name Dose Route Start Last Admin Trade Name Freq PRN Reason Stop Dose Admin Hydrocodone Bitart/Acetaminophen 1 packet 11/09/19 17:25 11/09/19 17:34 Take Home: Acetam/Hydrocodon 325-5 Mg, 5 Pack PO 11/09/19 17:26 1 packet ONETIME ONE Administration Cyclobenzaprine HCl 1 packet 11/09/19 17:25 11/09/19 17:34 Take Home: Cyclobenzaprine 10 Mg, 4 Tab Pack PO 11/09/19 17:26 1 packet ONETIME ONE Administration Departure - Departure Time of Disposition: 11:17 Disposition: Home, Self-Care 01 Clinical Impression: Compression fracture of L1 lumbar vertebra - Discharge Information Instructions: Spinal Compression Fracture Referrals: Scot Huang NP [Primary Care Provider] - Forms: ED Department Discharge Additional Instructions: [place] 5/325mg 1 every 6 hours as needed for pain Flexeril 10mg 1 three times daily for spasm I will contact the clinic to arrange follow-up, including fitting for a back brace. Follow-up in clinic as needed. Sepsis Event Note (ED) - Evaluation Sepsis Screening Result: No Definite Risk - Focused Exam Vital Signs: Vital Signs Temp Pulse Resp BP Pulse Ox 11/09/19 16:20 36.5 C 86 24 H 118/74 97 - Problem List Review Problem List Initiated/Reviewed/Updated: Yes - Assessment/Plan Plan: Spoke with Dr. Ham, [facility]. She advised having his follow-up with PCP to arrange ordering and fitting of lumbar LSO brace. She also advised starting the patient on a short course of opiate pain medication and flexeril. She advised telehealth follow-up within the next week. She did not advise any further imaging at this time (pt. is too heavy for our CT table) and since he is not having any new neuro symptoms, none is indicated. He was given a 5 pain of norco 5/325mg and some flexeril for muscle spasm. He was advised to follow- up at [facility] to arrange the above outlined plan of care. All questions were answered.
== END 2019-11-09 17:30 | disposition home or self-care (01) ==
LOC: VM.ED 16:20
DX: S32.019A Unspecified fracture of first lumbar vertebra, initial encounter for closed fracture (principal); E11.42 Type 2 diabetes mellitus with diabetic polyneuropathy; F17.210 Nicotine dependence, cigarettes, uncomplicated; Z88.5 Allergy status to narcotic agent; Z79.899 Other long term (current) drug therapy; W18.2XXA Fall in (into) shower or empty bathtub, initial encounter
CPT/HCPCS: 99283; A9270